=== PATIENT | male | born 1970 | race Caucasian/White ===

== ENCOUNTER 2019-03-30 21:25 | Emergency (ER) | payer BC ==
[~2019-03-30] VITALS: Ht 172.7 cm; Wt 93.4 kg
[2019-03-30 21:28] VITALS: Ht 172.7 cm; Wt 93.4 kg
[2019-03-30 23:12] VITALS: BP 116/77
== END 2019-03-30 22:56 | disposition home or self-care (01) ==
LOC: ED 21:25
DX: T78.1XXA Other adverse food reactions, not elsewhere classified, initial encounter (principal); I10 Essential (primary) hypertension; E11.9 Type 2 diabetes mellitus without complications; F17.210 Nicotine dependence, cigarettes, uncomplicated; X58.XXXA Exposure to other specified factors, initial encounter
CPT/HCPCS: 99406; J1100